=== PATIENT | female | born 1980 | race Caucasian/White ===

== ENCOUNTER 2021-06-26 14:57 | Emergency (ER) | payer OTHER ==
[~2021-06-26 14:57] MED LIST: FERROUS SULFAT325 MG PO
[2021-06-26 15:46] LABS: HEMOGLOBIN 14.6 gm/dl (12.3-15.3); RED BLOOD COUNT 4.72 M/UL (4.00-5.10); WHITE BLOOD COUNT 7.8 K/UL (4.5-11.0)
[2021-06-26 16:06] LABS: BUN/CREATININE RATIO 14 (0-10)
[2021-06-26] MEDS ORDERED: PROMETHEGAN25 MG PR (17:51)
[2021-06-26] MEDS ORDERED: PHENERGAN 25 MG25 M1 PO (17:51)
[2021-06-26] MEDS ORDERED: ZOFRAN ODT 4 MG4 MG SL (17:51)
== END 2021-06-26 18:31 | disposition home or self-care (01) ==
LOC: ER1 14:57
PROVIDERS: Emergency Medicine
DX: R11.2 Nausea with vomiting, unspecified (principal); R10.13 Epigastric pain; E78.5 Hyperlipidemia, unspecified; F17.200 Nicotine dependence, unspecified, uncomplicated; Z88.1 Allergy status to other antibiotic agents
CPT/HCPCS: 80053; 82550; 82553; 83690; 84484; 84703; 85025; 96374; 99284; J2405; J2765